=== PATIENT | female | born 1960 | race Caucasian/White ===

== ENCOUNTER 2016-11-10 14:39 | Inpatient (IN) | payer OTHER ==
[~2016-11-10] VITALS: Ht 170.2 cm; Wt 103.1 kg
[~2016-11-10 14:39] MED LIST: CIPRO250 MG PO
[2016-11-10 15:33] LABS: HEMATOCRIT 39.1 % (36.0-46.0); MCH 30.9 PG (29.0-34.0); MCV 90.9 FL (83-99); MEAN PLAT.VOLUME 10.5 uM^3 (9.5-12.4); PLATELET COUNT 210 K/uL (156-360); RBC DIS.WIDTH-CV 12.9 % (11.8-14.6); RBC DIS.WIDTH-SD 42.2 % (39-53); WHITE BLOOD COUNT 7.9 K/uL (4.1-10.2)
[2016-11-10 15:40] LABS: CHLORIDE 110 mEq/L (99-109); POTASSIUM 3.7 mEq/L (3.7-5.4); SODIUM 143 mEq/L (136-147)
[2016-11-10 15:42] LABS: GLUCOSE 128 mg/dL (70-99)
[2016-11-10 15:43] LABS: ANION GAP 11 MEQ/L (2-14)
[2016-11-10 15:45] LABS: SERUM ETHYL ALCOHOL < 10 mg/dL
[2016-11-10 15:46] LABS: GFR ESTIMATE (CALCULATED) > 59 mL/min/
[2016-11-10 15:47] LABS: UREA NITROGEN (BUN) 11 mg/dL (9-23)
[2016-11-10 17:26] LABS: AMPHETAMINE NEGATIVE (500 ng/mL); BARBITURATES NEGATIVE (200 ng/mL); BENZODIAZEPINES NEGATIVE (150 ng/mL); COCAINE NEGATIVE (150 ng/mL); INTERNAL CONTROLS VALID? YES; METHADONE NEGATIVE (200 ng/mL); METHAMPHETAMINE NEGATIVE (500 ng/mL); OPIATES (MORPHINE) NEGATIVE (100 ng/mL); OXYCODONE PRESUMPTIVE POSITIVE (100 ng/mL); PHENCYCLIDINE NEGATIVE (25 ng/mL); PROPOXYPHENE NEGATIVE (300 ng/mL); THC CANNABINOIDS NEGATIVE (50 ng/mL); TRICYCLIC ANTIDEPRESSANTS NEGATIVE (300 ng/mL)
[2016-11-10] MEDS ORDERED: ABILIFY5 MG PO (19:48)
[2016-11-10] MEDS ORDERED: WELLBUTRIN100 MG PO (19:48)
[2016-11-10] MEDS ORDERED: TRAZODONE HCL50 MG PO ×2 (19:49→20:16)
[2016-11-10] MEDS ORDERED: LEXAPRO20 MG PO ×2 (19:49→20:16)
[2016-11-10] MEDS ORDERED: OXYCONTIN30 MG PO ×2 (19:50→20:17)
[2016-11-10] MEDS ORDERED: LISINOPRIL10 MG PO (19:50)
[2016-11-10] MEDS ORDERED: PERCOCET 10/1 TABLET PO ×2 (19:51→20:18)
[2016-11-10] MEDS ORDERED: CELEBREX100 MG PO (19:51)
[2016-11-10] MEDS ORDERED: METFORMIN HCL1000 MG PO (19:51)
[2016-11-10] MEDS ORDERED: LYRICA50 MG PO ×3 (19:52→20:19)
[2016-11-10] MEDS ORDERED: LYRICA150 MG PO (19:52)
[2016-11-10] MEDS ORDERED: CIPRO250 MG PO (20:13)
[2016-11-10] MEDS ORDERED: ARIPIPRAZOLE5 MG PO (20:13)
[2016-11-10] MEDS ORDERED: WELLBUTRIN XL300 MG PO (20:15)
[2016-11-10] MEDS ORDERED: ZESTRIL10 MG PO (20:16)
[2016-11-10 20:17] VITALS: BP 167/72
[2016-11-10] MEDS ORDERED: ROXICODONE5 MG PO (20:17)
[2016-11-10] MEDS ORDERED: CELEBREX200 MG PO (20:18)
[2016-11-10] MEDS ORDERED: METFORMIN HCL500 M1 PO (20:18)
[2016-11-10] MEDS ORDERED: ERGOCALCIF50000 UNIT PO (20:20)
[2016-11-10] MEDS ORDERED: PROAIR HFA8.5 GM IH (20:20)
[2016-11-10] MEDS ORDERED: KLONOPIN0.5 M1 PO (21:02)
[2016-11-10] MEDS ORDERED: KLONOPIN1 MG PO (21:03)
[2016-11-11 07:51] VITALS: BP 134/82
[2016-11-11 15:22] VITALS: BP 116/58
[2016-11-12 07:50] VITALS: BP 128/62
[2016-11-12 15:52] VITALS: BP 145/79
[2016-11-13 08:06] VITALS: BP 155/86
[2016-11-13 11:55] VITALS: BP 120/66
[2016-11-13 16:04] VITALS: BP 127/71
[2016-11-14 07:41] VITALS: BP 114/70
[2016-11-14 15:23] VITALS: BP 123/66
[2016-11-15 07:56] VITALS: BP 108/67
[2016-11-15 15:50] VITALS: BP 112/58
[2016-11-16 07:42] VITALS: BP 116/65
[2016-11-16 15:03] VITALS: BP 95/50
[2016-11-17 07:28] VITALS: BP 117/59
[2016-11-17] MEDS ORDERED: FLUOXETINE HCL40 MG PO (09:03)
[2016-11-17] MEDS ORDERED: BUSPAR15 MG PO (09:03)
== END 2016-11-17 11:15 | disposition home or self-care (01) | DRG 885 ==
LOC: EME 14:39 → 1WEST 19:14 → EDOF 19:14 → 1WEST 19:40
DX: F33.2 Major depressive disorder, recurrent severe without psychotic features (principal); E11.42 Type 2 diabetes mellitus with diabetic polyneuropathy; F60.7 Dependent personality disorder; F41.9 Anxiety disorder, unspecified; I10 Essential (primary) hypertension; E78.00 Pure hypercholesterolemia, unspecified; M19.90 Unspecified osteoarthritis, unspecified site; Z91.419 Personal history of unspecified adult abuse; M54.9 Dorsalgia, unspecified
CPT/HCPCS: 80048; 85027; 90839; 97150 GO; 97165 GO; G0480

== ENCOUNTER → 2017-02-05 | Outpatient (CLI) | payer MEDICARE ==
[~2017-02-05] MED LIST changes: +ABILIFY5 MG PO; +ARIPIPRAZOLE5 MG PO; +BUSPAR15 MG PO; +CELEBREX100 MG PO; +CELEBREX200 MG PO; +ERGOCALCIF50000 UNIT PO; +FLUOXETINE HCL40 MG PO; +KLONOPIN0.5 M1 PO; +KLONOPIN1 MG PO; +LEXAPRO20 MG PO; +LISINOPRIL10 MG PO; +LYRICA150 MG PO; +LYRICA50 MG PO; +METFORMIN HCL1000 MG PO; +METFORMIN HCL500 M1 PO; +OXYCONTIN30 MG PO; +PERCOCET 10/1 TABLET PO; +PROAIR HFA8.5 GM IH; +ROXICODONE5 MG PO; +TRAZODONE HCL50 MG PO; +WELLBUTRIN XL300 MG PO; +WELLBUTRIN100 MG PO; +ZESTRIL10 MG PO
== END | disposition home or self-care (01) ==
LOC: CDC 10:20
DX: M79.642 Pain in left hand (principal); M19.042 Primary osteoarthritis, left hand; G56.02 Carpal tunnel syndrome, left upper limb; R00.1 Bradycardia, unspecified
CPT/HCPCS: 93000

== ENCOUNTER 2017-02-22 06:22 | Inpatient (IN) | payer OTHER ==
[~2017-02-22] VITALS: Ht 170.2 cm; Wt 102.5 kg
[~2017-02-22 06:22] MED LIST changes: -ARIPIPRAZOLE5 MG PO; +DURAGESIC25 MCG TD
[2017-02-22 07:02] LABS: HEMATOCRIT 40.9 % (36.0-46.0); MCH 31.3 PG (29.0-34.0); MCV 92.1 FL (83-99); MEAN PLAT.VOLUME 10.5 uM^3 (9.5-12.4); PLATELET COUNT 201 K/uL (156-360); RBC DIS.WIDTH-CV 12.7 % (11.8-14.6); RED BLOOD COUNT 4.44 M/uL (3.80-5.20); WHITE BLOOD COUNT 6.3 K/uL (4.1-10.2)
[2017-02-22 07:20] LABS: POINT-OF-CARE METER ID UU14174212
[2017-02-22 07:50] VITALS: BP 116/69
[2017-02-22 09:10] LABS: METH RESISTANT S AUREUS PCR POSITIVE (NEGATIVE)
[2017-02-22 09:15] LABS: PROBE CHECK PASS
[2017-02-22 13:19] VITALS: BP 120/64
[2017-02-22 16:53] VITALS: BP 114/68
[2017-02-22 20:18] VITALS: BP 112/64
[2017-02-23 00:22] VITALS: BP 108/62
[2017-02-23 03:48] VITALS: BP 100/62
[2017-02-23] MEDS ORDERED: CYCLOBENZAPRINE10 MG PO (07:03)
[2017-02-23] MEDS ORDERED: OXYCODONE-APAP1 EACH PO (07:03)
[2017-02-23 07:59] VITALS: BP 102/66
[2017-02-23 11:39] VITALS: BP 90/58
== END 2017-02-23 14:49 | disposition home or self-care (01) | DRG 473 ==
LOC: SDC 06:22 → 2SOUTH 11:00 → ENRESERV 12:10 → 3EAST 13:03 → SDC 15:46 → 3EAST 02-23 14:49
PROVIDERS: Neurological Surgery
DX: M47.22 Other spondylosis with radiculopathy, cervical region (principal); E11.9 Type 2 diabetes mellitus without complications; E78.00 Pure hypercholesterolemia, unspecified; I10 Essential (primary) hypertension; J45.909 Unspecified asthma, uncomplicated; K21.9 Gastro-esophageal reflux disease without esophagitis; F41.9 Anxiety disorder, unspecified; F32.9 Major depressive disorder, single episode, unspecified; M25.78 Osteophyte, vertebrae; E66.9 Obesity, unspecified; Z68.35 Body mass index [BMI] 35.0-35.9, adult; Z68.36 Body mass index [BMI] 36.0-36.9, adult; G43.909 Migraine, unspecified, not intractable, without status migrainosus
CPT/HCPCS: 72020; 76000; 82948; 85027; 87641; 94799; J0330; J1170; J2250; J2405; J2710; J3010; J3480

== ENCOUNTER 2017-02-27 23:34 | Emergency (ER) | payer OTHER ==
[~2017-02-27] VITALS: Ht 170.2 cm; Wt 109.2 kg
[~2017-02-27 23:34] MED LIST changes: +CYCLOBENZAPRINE10 MG PO; +OXYCODONE-APAP1 EACH PO
[2017-02-28 02:31] VITALS: BP 121/79
== END 2017-02-28 02:42 | disposition home or self-care (01) ==
LOC: EME 23:34
DX: M25.552 Pain in left hip (principal); M79.89 Other specified soft tissue disorders; Z96.642 Presence of left artificial hip joint; E11.9 Type 2 diabetes mellitus without complications; Z79.84 Long term (current) use of oral hypoglycemic drugs; I10 Essential (primary) hypertension; E78.5 Hyperlipidemia, unspecified; Z96.652 Presence of left artificial knee joint; Z88.0 Allergy status to penicillin; Z88.5 Allergy status to narcotic agent
CPT/HCPCS: 73502; 93971; 99281; 99284; J1885

== ENCOUNTER 2017-04-07 21:39 | Emergency (ER) | payer OTHER ==
[~2017-04-07] VITALS: Ht 170.2 cm; Wt 106.1 kg
[2017-04-07 22:46] VITALS: BP 147/82
== END 2017-04-07 22:47 | disposition home or self-care (01) ==
LOC: EME 21:39
DX: S63.617A Unspecified sprain of left little finger, initial encounter (principal); X58.XXXA Exposure to other specified factors, initial encounter; I10 Essential (primary) hypertension; E11.9 Type 2 diabetes mellitus without complications; E78.5 Hyperlipidemia, unspecified; F41.9 Anxiety disorder, unspecified; F32.9 Major depressive disorder, single episode, unspecified; Z98.890 Other specified postprocedural states; Z96.642 Presence of left artificial hip joint; Z96.652 Presence of left artificial knee joint; Z88.0 Allergy status to penicillin; Z88.8 Allergy status to other drugs, medicaments and biological substances
CPT/HCPCS: 73130; 99281; 99284

== ENCOUNTER 2017-04-14 18:26 | Emergency (ER) | payer OTHER ==
[~2017-04-14] VITALS: Ht 170.2 cm; Wt 106.0 kg
[2017-04-14 21:29] VITALS: BP 150/85
== END 2017-04-14 21:29 | disposition home or self-care (01) ==
LOC: EME 18:26
DX: T84.84XA Pain due to internal orthopedic prosthetic devices, implants and grafts, initial encounter (principal); Z98.890 Other specified postprocedural states; I10 Essential (primary) hypertension; E78.5 Hyperlipidemia, unspecified; Z88.0 Allergy status to penicillin
CPT/HCPCS: 73130; 99281; 99282

== ENCOUNTER 2017-05-26 20:59 | Emergency (ER) | payer OTHER ==
[~2017-05-26] VITALS: Ht 170.2 cm; Wt 112.0 kg
[2017-05-26 21:34] LABS: HEMATOCRIT 39.1 % (36.0-46.0); MCH 30.1 PG (29.0-34.0); MCHC 33.2 G/DL (30.0-36.0); MCV 90.5 FL (83-99); MEAN PLAT.VOLUME 10.8 uM^3 (9.5-12.4); PLATELET COUNT 236 K/uL (156-360); RBC DIS.WIDTH-CV 13.5 % (11.8-14.6); RED BLOOD COUNT 4.32 M/uL (3.80-5.20); WHITE BLOOD COUNT 13.7 K/uL (4.1-10.2)
[2017-05-26 21:46] LABS: CHLORIDE 108 mEq/L (99-109); POTASSIUM 3.9 mEq/L (3.7-5.4); SODIUM 142 mEq/L (136-147)
[2017-05-26 21:48] LABS: GLUCOSE 178 mg/dL (70-99)
[2017-05-26 21:49] LABS: ANION GAP 10 MEQ/L (2-14)
[2017-05-26 21:52] LABS: GFR ESTIMATE (CALCULATED) > 59 mL/min/
[2017-05-26 21:53] LABS: UREA NITROGEN (BUN) 14 mg/dL (9-23)
[2017-05-27] MEDS ORDERED: TYLENOL WITH C1 EACH PO (00:21)
[2017-05-27] MEDS ORDERED: PREDNISONE20 MG PO (00:21)
[2017-05-27] MEDS ORDERED: VENTOLIN HFA18 GM IH (00:25)
[2017-05-27 00:50] VITALS: BP 131/74
== END 2017-05-27 00:52 | disposition home or self-care (01) ==
LOC: EME 20:59
DX: J45.909 Unspecified asthma, uncomplicated (principal); K21.9 Gastro-esophageal reflux disease without esophagitis; E78.5 Hyperlipidemia, unspecified; G89.29 Other chronic pain; F44.81 Dissociative identity disorder; Z79.84 Long term (current) use of oral hypoglycemic drugs; Z90.49 Acquired absence of other specified parts of digestive tract; Z88.5 Allergy status to narcotic agent; Z88.0 Allergy status to penicillin; Z88.1 Allergy status to other antibiotic agents
CPT/HCPCS: 71020; 80048; 85027; 94640; 94640 76; 99281; 99285; J7512

== ENCOUNTER 2017-08-25 18:51 | Emergency (ER) | payer OTHER ==
[~2017-08-25] VITALS: Ht 170.2 cm; Wt 107.4 kg
[~2017-08-25 18:51] MED LIST changes: +PREDNISONE20 MG PO; +TYLENOL WITH C1 EACH PO; +VENTOLIN HFA18 GM IH
[2017-08-25] MEDS ORDERED: NAPROXEN500 MG PO (20:19)
[2017-08-25] MEDS ORDERED: PERCOCET 5/31 TABLET PO (20:19)
[2017-08-25 20:35] VITALS: BP 157/90
== END 2017-08-25 20:53 | disposition home or self-care (01) ==
LOC: EME 18:51
DX: S73.101A Unspecified sprain of right hip, initial encounter (principal); X50.9XXA Other and unspecified overexertion or strenuous movements or postures, initial encounter; Y93.01 Activity, walking, marching and hiking; Z88.0 Allergy status to penicillin; Z88.5 Allergy status to narcotic agent; Z88.1 Allergy status to other antibiotic agents
CPT/HCPCS: 73502; 99281; 99283

== ENCOUNTER 2017-11-20 09:03 | Day surgery (SDC) | payer OTHER ==
[~2017-11-20] VITALS: Ht 170.2 cm; Wt 93.4 kg
[~2017-11-20 09:03] MED LIST changes: +AMBIEN10 MG PO; +BUSPAR30 MG PO; +CYMBALTA30 MG PO; +FLUOXETINE HCL60 MG PO; +FORTAMET500 M1 PO; +LIPITOR40 MG PO; -METFORMIN HCL500 M1 PO; +NAPROXEN500 MG PO; +OXYCODONE-ACET1 EACH PO; +PERCOCET 5/31 TABLET PO; +PRILOSEC20 MG PO; +WELLBUTRIN SR150 MG PO
== END 2017-11-20 10:50 | disposition home or self-care (01) ==
LOC: PAIN 09:03 → SDC 09:45 → PAIN 10:50
PROVIDERS: Anesthesiology Pain Medicine
DX: M53.3 Sacrococcygeal disorders, not elsewhere classified (principal); M46.1 Sacroiliitis, not elsewhere classified; M47.816 Spondylosis without myelopathy or radiculopathy, lumbar region; M51.36 Other intervertebral disc degeneration, lumbar region; M79.1 Myalgia; I10 Essential (primary) hypertension; F41.9 Anxiety disorder, unspecified; E11.9 Type 2 diabetes mellitus without complications; E78.5 Hyperlipidemia, unspecified; E66.9 Obesity, unspecified; Z68.32 Body mass index [BMI] 32.0-32.9, adult; Z79.84 Long term (current) use of oral hypoglycemic drugs; Z79.891 Long term (current) use of opiate analgesic
CPT/HCPCS: 82948; J1030; J2250; S0020

== ENCOUNTER 2017-12-22 03:45 | Emergency (ER) | payer OTHER ==
[~2017-12-22] VITALS: Ht 167.6 cm; Wt 92.8 kg
[2017-12-22 04:44] LABS: HEMATOCRIT 39.1 % (36.0-46.0); HEMOGLOBIN 13.2 G/DL (11.9-15.5); MCH 31.4 PG (29.0-34.0); MCHC 33.8 G/DL (30.0-36.0); MCV 93.1 FL (83-99); PLATELET COUNT 220 K/uL (156-360); RBC DIS.WIDTH-CV 13.9 % (11.8-14.6); RBC DIS.WIDTH-SD 46.8 % (39-53); WHITE BLOOD COUNT 6.8 K/uL (4.1-10.2)
[2017-12-22 04:50] LABS: INTER. NORMALIZED RATIO 0.9
[2017-12-22 04:55] LABS: ALBUMIN 3.9 g/dL (3.2-4.8)
[2017-12-22 04:56] LABS: CHLORIDE 108 mEq/L (99-109); POTASSIUM 3.7 mEq/L (3.7-5.4); SODIUM 144 mEq/L (136-147)
[2017-12-22 04:58] LABS: GLUCOSE 88 mg/dL (70-99); TOTAL PROTEIN 6.6 g/dL (6.4-8.3)
[2017-12-22 05:00] LABS: TOTAL BILIRUBIN 0.5 mg/dL (0.0-1.0)
[2017-12-22 05:01] LABS: ALKALINE PHOSPHATASE 91 IU/L (3-129)
[2017-12-22 05:02] LABS: GFR ESTIMATE (CALCULATED) > 59 mL/min/
[2017-12-22 05:03] LABS: AST (GOT) 19 IU/L (2-34); UREA NITROGEN (BUN) 18 mg/dL (9-23)
[2017-12-22 05:05] LABS: ALT (GPT) 32 IU/L (3-49)
[2017-12-22 05:40] LABS: APPEARANCE CLEAR ((CLEAR)); BILIRUBIN NEGATIVE; BLOOD NEGATIVE; COLOR YELLOW ((YELLOW)); GLUCOSE (STRIP) NEGATIVE; KETONES NEGATIVE; LEUKOCYTES TRACE; NITRITE NEGATIVE; PROTEIN (STRIP) NEGATIVE; SPECIFIC GRAVITY 1.027 (1.000-1.030); UROBILINOGEN 0.2 MG/DL (0.2-1.0)
[2017-12-22 05:44] LABS: BACTERIA RARE /HPF; EPITHELIAL CELLS 1+ /HPF; HYALINE CASTS 0-5 /LPF; MUCUS TRACE /LPF; RED BLOOD CELLS 0-5 /HPF (0-5); UCUL ADDED? NO; WHITE BLOOD CELLS 0-5 /HPF (0-5)
[2017-12-22] MEDS ORDERED: ANUSOL HC,ANUCO25 MG PR (06:40)
[2017-12-22 06:54] VITALS: BP 115/78
== END 2017-12-22 06:57 | disposition home or self-care (01) ==
LOC: EME 03:45
PROVIDERS: Physician Assistant
DX: K64.9 Unspecified hemorrhoids (principal); R10.31 Right lower quadrant pain; K92.1 Melena; R11.0 Nausea; I10 Essential (primary) hypertension; E11.9 Type 2 diabetes mellitus without complications; K21.9 Gastro-esophageal reflux disease without esophagitis; E03.9 Hypothyroidism, unspecified; J45.909 Unspecified asthma, uncomplicated; Z88.5 Allergy status to narcotic agent; Z88.0 Allergy status to penicillin; Z91.040 Latex allergy status
CPT/HCPCS: 74177; 80053; 81003; 85027; 85610; 99281; 99285; J7030

== ENCOUNTER 2017-12-25 09:07 | Day surgery (SDC) | payer OTHER ==
[~2017-12-25] VITALS: Ht 170.2 cm; Wt 93.4 kg
[~2017-12-25 09:07] MED LIST changes: +ANUSOL HC,ANUCO25 MG PR
== END 2017-12-25 10:50 | disposition home or self-care (01) ==
LOC: PAIN 09:07 → SDC 09:30 → PAIN 10:50
PROVIDERS: Anesthesiology Pain Medicine
DX: M47.816 Spondylosis without myelopathy or radiculopathy, lumbar region (principal); M43.17 Spondylolisthesis, lumbosacral region; M51.36 Other intervertebral disc degeneration, lumbar region; M46.1 Sacroiliitis, not elsewhere classified; F41.9 Anxiety disorder, unspecified; I10 Essential (primary) hypertension; E11.9 Type 2 diabetes mellitus without complications; E78.5 Hyperlipidemia, unspecified; J45.909 Unspecified asthma, uncomplicated; Z88.5 Allergy status to narcotic agent; Z88.0 Allergy status to penicillin; Z88.8 Allergy status to other drugs, medicaments and biological substances; Z91.040 Latex allergy status
CPT/HCPCS: 82948; J1030; J2250; S0020

== ENCOUNTER 2018-01-01 09:00 | Day surgery (SDC) | payer OTHER ==
[~2018-01-01] VITALS: Ht 167.6 cm; Wt 93.4 kg
== END 2018-01-01 10:33 | disposition home or self-care (01) ==
LOC: PAIN 09:00 → SDC 09:30 → PAIN 10:33
PROVIDERS: Anesthesiology Pain Medicine
PROC: BR161ZZ Fluoroscopy of Lumbar Facet Joint(s) using Low Osmolar Contrast (ICD-10-PCS; principal; 2018-01-01)
PROC: 3E0T3TZ Introduction of Destructive Agent into Peripheral Nerves and Plexi, Percutaneous Approach (ICD-10-PCS; principal; 2018-01-01)
DX: M47.816 Spondylosis without myelopathy or radiculopathy, lumbar region (principal); M43.17 Spondylolisthesis, lumbosacral region; M46.1 Sacroiliitis, not elsewhere classified; F41.9 Anxiety disorder, unspecified; E11.9 Type 2 diabetes mellitus without complications; I10 Essential (primary) hypertension; J45.909 Unspecified asthma, uncomplicated; E66.9 Obesity, unspecified; Z68.32 Body mass index [BMI] 32.0-32.9, adult; K21.9 Gastro-esophageal reflux disease without esophagitis; Z88.5 Allergy status to narcotic agent; Z88.0 Allergy status to penicillin; Z88.8 Allergy status to other drugs, medicaments and biological substances; Z91.040 Latex allergy status; Z79.891 Long term (current) use of opiate analgesic
CPT/HCPCS: 82948; J1030; J2250; S0020

== ENCOUNTER 2018-01-26 19:47 | Emergency (ER) | payer OTHER ==
[~2018-01-26] VITALS: Ht 167.6 cm; Wt 91.7 kg
[2018-01-26 21:18] LABS: HEMATOCRIT 35.3 % (36.0-46.0); HEMOGLOBIN 11.9 G/DL (11.9-15.5); MCH 31.6 PG (29.0-34.0); MCHC 33.7 G/DL (30.0-36.0); MCV 93.6 FL (83-99); PLATELET COUNT 183 K/uL (156-360); RED BLOOD COUNT 3.77 M/uL (3.80-5.20); WHITE BLOOD COUNT 5.7 K/uL (4.1-10.2)
[2018-01-26 21:27] LABS: CHLORIDE 108 mEq/L (99-109); POTASSIUM 3.6 mEq/L (3.7-5.4); SODIUM 143 mEq/L (136-147)
[2018-01-26 21:29] LABS: GLUCOSE 105 mg/dL (70-99)
[2018-01-26 21:33] LABS: CREATININE 0.9 mg/dL (0.6-1.3); GFR ESTIMATE (CALCULATED) > 59 mL/min/
[2018-01-26 21:34] LABS: UREA NITROGEN (BUN) 12 mg/dL (9-23)
[2018-01-26 21:40] LABS: TROP-I INTERPRETATION NEGATIVE; TROPONIN-I < 0.01 ng/mL (0.0-0.30)
[2018-01-26 22:19] LABS: APPEARANCE CLEAR ((CLEAR)); BILIRUBIN NEGATIVE; BLOOD NEGATIVE; COLOR YELLOW ((YELLOW)); GLUCOSE (STRIP) NEGATIVE; KETONES 5; LEUKOCYTES TRACE; NITRITE NEGATIVE; PROTEIN (STRIP) 30; SPECIFIC GRAVITY 1.029 (1.000-1.030)
[2018-01-26 22:25] LABS: BACTERIA RARE /HPF; EPITHELIAL CELLS 1+ /HPF; MUCUS TRACE /LPF; RED BLOOD CELLS 0-5 /HPF (0-5); UCUL ADDED? NO; WHITE BLOOD CELLS 0-5 /HPF (0-5)
[2018-01-26] MEDS ORDERED: MECLIZINE HCL25 MG PO (23:02)
[2018-01-26 23:16] VITALS: BP 107/71
== END 2018-01-26 23:23 | disposition home or self-care (01) ==
LOC: EME 19:47
PROVIDERS: Nurse Practitioner Family
DX: R42 Dizziness and giddiness (principal); R51 Headache; I10 Essential (primary) hypertension; E78.5 Hyperlipidemia, unspecified; E11.9 Type 2 diabetes mellitus without complications; F32.9 Major depressive disorder, single episode, unspecified; I71.2 Thoracic aortic aneurysm, without rupture; J45.909 Unspecified asthma, uncomplicated; K21.9 Gastro-esophageal reflux disease without esophagitis; Z88.0 Allergy status to penicillin; Z88.5 Allergy status to narcotic agent
CPT/HCPCS: 80048; 81003; 84484; 85027; 93005; 99281; 99285; J0780; J1200; J1885; J7030